=== PATIENT | female | born 1965 | race Caucasian/White ===

== ENCOUNTER 2019-01-23 17:04 | Emergency (ER) | payer OTHER ==
[~2019-01-23] VITALS: Ht 170.2 cm; Wt 93.0 kg
[~2019-01-23 17:04] MED LIST: ACET500 PO; ALBU90OI6 INH; AMOX500 PO; ASPI81CH PO; AZIT250 PO; Amoxicillin500 MG PO; Aspirin EC81 MG PO; BELPTAB PO; BENZ100A PO; CIPR500 PO; CLAR500 PO; CODGUAEL PO; CONEST.3 PO; CONEST.625; CRUTCH3 USE; CYCL10 PO; ESCI10 PO; FAMO10; HYDACE5 PO; HYDCHL25 PO; HYDGUAL120 PO; HYOS.125 SL; Hydrochlorothia25 MG PO; LANS30EC PO; LEVSOD100; LEVSOD100 PO; MEDR10 PO; METOPROLOL; METPRE4DP PO; METR500 PO; NAPR375 PO; NAPR500 PO; Norco 5-325 Ta1 EACH PO; OMEP20ER PO; ONDA8ODT MM; OXYACE5T; OXYACE5T PO; PANT40 PO; PROM12.5S PR; PROM25 PO; RANI150; RANI150 PO; RANITIDINE; RXHYDACE PO; RXPROM25 PO; SIME80CH PO; SIMV10 PO; STATIN; Sudogest60 MG PO; THROID; THYROID; TOPI100 PO; TRAM50 PO; VERA120ERB PO; [UNRECOGNIZED DRUG - OTHER]
[2019-01-23 18:13] LABS: BASOPHILS ABSOLUTE AUTO 0.05 K/mm3 (0.00-0.23); BASOPHILS PERCENT AUTO 1 % (0-2); EOSINOPHILS ABSOLUTE AUTO 0.11 K/mm3 (0.00-0.68); EOSINOPHILS PERCENT AUTO 2 % (0-6); Hematocrit 41.2 % (33.0-51.0); Hemoglobin 14.3 g/dL (11.5-16.0); IMMATURE GRAN ABSOLUTE AUTO 0.03 K/mm3 (0.00-0.10); IMMATURE GRAN PERCENT AUTO 1 % (0-1); LYMPHOCYTES ABSOLUTE AUTO 2.28 K/mm3 (0.84-5.20); LYMPHOCYTES PERCENT AUTO 34 % (21-46); MONOCYTES ABSOLUTE AUTO 0.71 K/mm3 (0.16-1.47); MONOCYTES PERCENT AUTO 11 % (4-13); Mean Corpuscular HGB 31.2 pg (26.0-34.0); Mean Corpuscular HGB Conc 34.7 g/dL (31.5-36.5); Mean Corpuscular Volume 90 fL (80-100); Mean Platelet Volume 9.8 fL (9.1-12.4); NEUTROPHILS ABSOLUTE AUTO 3.45 K/mm3 (1.96-9.15); NEUTROPHILS PERCENT AUTO 52 % (41-73); Platelet Count 259 K/mm3 (150-400); RDW Coefficient Variation 12.5 % (11.7-14.2); RDW Standard Deviation 41.1 fL (35.1-46.3); Red Blood Cell Count 4.59 M/mm3 (3.80-5.20); White Blood Cell Count 6.63 K/mm3 (4.00-11.30)
[2019-01-23 18:33] LABS: Alanine Aminotransfer (ALT/SGP 32 U/L (12-78); Albumin, Blood 3.8 g/dL (3.4-5.0); Alk Phos 70 U/L (50-136); Anion Gap 7 mmol/L (6-16); Aspartate Aminotrans (AST/SGOT 17 U/L (12-37); Bilirubin, Total 0.2 mg/dL (0.1-1.0); Blood Urea Nitrogen 14 mg/dL (8-24); Bun/Creatinine Ratio 17.1 (12.0-20.0); CO2, Blood 25 mmol/L (21-32); Calcium, Blood 9.1 mg/dL (8.5-10.1); Chloride, Blood 109 mmol/L (98-108); Creatinine, Blood 0.82 mg/dL (0.40-1.00); Globulin, Blood 3.7 g/dL (2.2-4.0); Glomerular Filtration Rate >60 (60-); Glucose, Blood 91 mg/dL (70-99); Potassium, Blood 3.3 mmol/L (3.5-5.5); Sodium, Blood 141 mmol/L (136-145); Total Protein, Blood 7.5 g/dL (6.4-8.2)
[2019-01-23] MEDS ORDERED: POTCHL20ER PO (19:33)
== END 2019-01-23 19:55 | disposition home or self-care (01) ==
LOC: ER 17:04
PROVIDERS: Emergency Medicine
DX: G43.909 Migraine, unspecified, not intractable, without status migrainosus (principal); R20.2 Paresthesia of skin; E87.6 Hypokalemia; K21.9 Gastro-esophageal reflux disease without esophagitis; M79.89 Other specified soft tissue disorders; E05.90 Thyrotoxicosis, unspecified without thyrotoxic crisis or storm; R29.810 Facial weakness; Z88.2 Allergy status to sulfonamides; Z88.8 Allergy status to other drugs, medicaments and biological substances; Z79.82 Long term (current) use of aspirin; Z79.899 Other long term (current) drug therapy
CPT/HCPCS: 36415; 70450; 80053; 85025; 96374; 96375; 99284-25; J1200; J1885; J2765

== ENCOUNTER → 2020-04-13 | Outpatient (CLI) | payer OTHER ==
[~2020-04-13] MED LIST changes: +POTCHL20ER PO
== END ==
LOC: LAB EV 17:53 → LAB SHORT 17:53
DX: N39.0 Urinary tract infection, site not specified (principal)
CPT/HCPCS: 87077; 87086; 87186

== ENCOUNTER → 2022-01-03 | Outpatient (CLI) | payer OTHER | END | disposition home or self-care (01) | LOC: LAB SHORT 16:11 → LAB 16:11 | DX: R30.9 Painful micturition, unspecified (principal) | CPT/HCPCS: 87077; 87086; 87186 ==

== ENCOUNTER → 2022-01-17 | Outpatient (CLI) | payer OTHER ==
[2022-01-17 14:31] LABS: Source, Urine Clean Catch
[2022-01-17 17:44] LABS: Appearance, Urine Hazy (Clear); Bilirubin, Urine Neg (Neg); Blood, Urine 2+ (Neg); Color, Urine Yellow (P-Yellow); Glucose Qualitative, Urine Neg (Neg); Ketones, Urine Neg (Neg); Leukocyte Esterase, Urine 3+ (Neg); Nitrite, Urine Neg (Neg); Protein, Urine Neg (Neg); Specific Gravity, Urine 1.015 (1.003-1.022); Urobilinogen, Urine NORM (Normal)
[2022-01-17 18:12] LABS: Bacteria Mod /hpf
[2022-01-17 18:13] LABS: Squamous Epithelial Cells Mod /hpf (Few)
[2022-01-17 18:14] LABS: Other Crystals Many /hpf
[2022-01-18 11:51] LABS: Candida species (DNA Probe) Negative (NEGATIVE); G. vaginalis (DNA Probe) Negative (NEGATIVE); T. vaginalis (DNA Probe) Negative (NEGATIVE)
== END | disposition home or self-care (01) ==
LOC: LAB SHORT 14:24
PROVIDERS: Family Medicine
DX: N76.0 Acute vaginitis (principal); R30.9 Painful micturition, unspecified
CPT/HCPCS: 81001; 87480; 87510; 87660

== ENCOUNTER → 2022-02-13 | Outpatient (CLI) | payer OTHER ==
[2022-02-13 13:30] LABS: Protein, Urine Quantitative 8.7 mg/dL (0.0-11.9)
[2022-02-13 13:45] LABS: Microalbumin, Urine Quant. <5.000 mg/L (0.000-20.000)
== END | disposition home or self-care (01) ==
LOC: LAB SHORT 08:00 → LAB 08:00
PROVIDERS: Internal Medicine Nephrology
DX: N18.2 Chronic kidney disease, stage 2 (mild) (principal); D63.1 Anemia in chronic kidney disease; J20.9 Acute bronchitis, unspecified; N13.30 Unspecified hydronephrosis; R94.5 Abnormal results of liver function studies; R32 Unspecified urinary incontinence; R76.9 Abnormal immunological finding in serum, unspecified; G60.9 Hereditary and idiopathic neuropathy, unspecified
CPT/HCPCS: 81050; 82043; 82570; 84156

== ENCOUNTER → 2022-05-17 | Outpatient (CLI) | payer OTHER | END | disposition home or self-care (01) | LOC: LAB SHORT 11:15 | DX: K21.9 Gastro-esophageal reflux disease without esophagitis (principal) | CPT/HCPCS: 87338 ==

== ENCOUNTER → 2022-05-19 | Outpatient (CLI) | payer OTHER ==
[2022-05-19 19:22] LABS: Adenovirus F 40/41 Not Detected (NOT DETECT); Astrovirus Not Detected (NOT DETECT); Campylobacter Sp Not Detected (NOT DETECT); Cryptosporidium Not Detected (NOT DETECT); Cyclospora Cayetanensis Not Detected (NOT DETECT); E. Coli O157 Not Detected (NOT DETECT); Entamoeba Histolytica Not Detected (NOT DETECT); Enteroaggregative E. coli-EAEC Not Detected (NOT DETECT); Enteropathogenic E. coli-EPEC Not Detected (NOT DETECT); Enterotoxigenic E. coli-ETEC Not Detected (NOT DETECT); Giardia Lamblia Not Detected (NOT DETECT); Norovirus GI/GII Detected (NOT DETECT); Plesiomonas Shigelloides Not Detected (NOT DETECT); Rotavirus A Not Detected (NOT DETECT); Salmonella Sp Not Detected (NOT DETECT); Sapovirus Not Detected (NOT DETECT); Shiga Toxin-prod E. coli-STEC Not Detected (NOT DETECT); Shigella/Enteroin E. coli-EIEC Not Detected (NOT DETECT); Vibrio Cholerae Not Detected (NOT DETECT); Vibrio Sp Not Detected (NOT DETECT); Yersinia Enterocolitica Not Detected (NOT DETECT)
== END | disposition home or self-care (01) ==
LOC: LAB 11:30 → LAB SHORT 11:30
PROVIDERS: Family Medicine
DX: K63.89 Other specified diseases of intestine (principal); R19.7 Diarrhea, unspecified
CPT/HCPCS: 87507

== ENCOUNTER 2022-10-24 08:28 | Day surgery (SDC) | payer OTHER ==
[2022-10-24] VITALS (18 sets, daily range): BP systolic 95–140; BP diastolic 62–95
[~2022-10-24] VITALS: Ht 167.6 cm; Wt 92.7 kg
[~2022-10-24 08:28] MED LIST changes: +CHOLP PO; +HYDACE10B PO; +LEVO T PO; +LOPE2C PO; +MULTI-VITAMIN1 EAC2 PO; +POTA10T PO; -VERA120ERB PO; +VERAPAMIL ER120 M1 PO; +Zocor10 MG PO
--- NOTE | 2022-10-24 09:44 | NUR ---
10/24/22 0944 Constance Mccarthy HISTORY, CHART, MEDICATIONS AND ALLERGIES REVIEWED BEFORE START OF PROCEDURE. PATIENT CONFIRMS NPO STATUS AND AGREES WITH SCHEDULED PROCEDURE. 3-LEAD EKG REVIEWED WITH PHYSICIAN PRIOR TO START OF PROCEDURE. MONITOR INTACT WITH CONTINUOUS PULSE OXIMETRY,CAPNOGRAPHY, 3-LEAD EKG, INTERMITTENT BP. SUPPLEMENTAL O2 TO BE TITRATED THROUGHOUT PROCEDURE TO MAINTAIN O2 SATURATION ABOVE 90%. PATIENT DETERMINED TO BE ASA APPROPRIATE FOR PROPOFOL SEDATION PRIOR TO START OF PROCEDURE BY DR. LINTON/
--- NOTE | 2022-10-24 10:58 | NUR ---
1025 REPORT RECEIVED FROM LUIGI BOWDEN RN. VSS. PT SITTING UP IN BED TOLERATING PO FLUIDS. SISTER AT BEDSIDE. PT DENIES PAIN OR DISCOMFORT.
--- NOTE | 2022-10-24 10:59 | NUR ---
Patient up to Ambulate independently. Gait steady. VSS. Discharge instructions reviewed with patient. Patient verbalizes understanding. Copy given to patient to take home. Patient States Post-Procedure ride home has been arranged. Discharged via wheelchair to private car for ride home. PT BELONGINGS RETURNED TO PT.
== END 2022-10-24 22:49 | disposition home or self-care (01) ==
LOC: ORSCMMR 08:28 → ORD 09:30 → ORSCMMR 22:49
PROVIDERS: Internal Medicine Gastroenterology
PROC: 0DDN8ZX Extraction of Sigmoid Colon, Via Natural or Artificial Opening Endoscopic, Diagnostic (ICD-10-PCS; principal; 2022-10-24 09:30)
PROC: 0DDK8ZX Extraction of Ascending Colon, Via Natural or Artificial Opening Endoscopic, Diagnostic (ICD-10-PCS; principal; 2022-10-24 09:30)
PROC: 0DDL8ZX Extraction of Transverse Colon, Via Natural or Artificial Opening Endoscopic, Diagnostic (ICD-10-PCS; principal; 2022-10-24 09:30)
DX: R19.7 Diarrhea, unspecified (principal); Z86.010 Personal history of colon polyps; Z80.0 Family history of malignant neoplasm of digestive organs; K52.832 Lymphocytic colitis; K64.8 Other hemorrhoids; E03.9 Hypothyroidism, unspecified; E78.00 Pure hypercholesterolemia, unspecified; K21.9 Gastro-esophageal reflux disease without esophagitis; Z79.82 Long term (current) use of aspirin; Z79.899 Other long term (current) drug therapy
CPT/HCPCS: 88305; J2704; J7120

== ENCOUNTER → 2023-01-15 | Outpatient (CLI) | payer OTHER | END | disposition home or self-care (01) | LOC: LAB 11:25 → LAB SHORT 11:25 | DX: R30.0 Dysuria (principal) | CPT/HCPCS: 87077; 87086; 87186 ==

== ENCOUNTER 2023-02-21 08:41 | Day surgery (SDC) | payer OTHER ==
[~2023-02-21] VITALS: Ht 170.2 cm; Wt 93.4 kg
[2023-02-21] VITALS (14 sets, daily range): BP systolic 98–122; BP diastolic 53–80
--- NOTE | 2023-02-21 09:40 | NUR ---
Patient up to Ambulate independently. Gait steady. History, Chart, Medications and Allergies reviewed before start of procedure. Lungs clear T/O to Auscultation. Patient confirms NPO status and agrees with scheduled surgery. Pre-Op teaching done. Pt verbalizes understanding. AT BEDSIDE. CLOTHES SHOES AND PHONE PLACED IN PT BELONGING BED UNDER THE GURN.
--- NOTE | 2023-02-21 14:16 | NUR ---
PATIENT ARRIVED FROM PACU TODAY AT 1400. POD 0 RIGHT TOTAL KNEE PATIENT IS A&OX4. VS ARE WNL AND IS ON RA. PATIENT HAD A SPINAL DURING PROCEDURE AND REPORTS NUMBNESS FROM THE TOP OF KNEE DOWN BUT IS ABLE TO WIGGLE FINGERS AND TOES WHEN ASKED. PEDAL PULSES ARE STRONG AND WARM TO TOUCH. SHE IS TOLERATING SMALL AMOUNTS OF PO INTAKE. HER RIGHT KNEE HAS AN MARIO WRAP THAT IS C/D/I. PATIENT IS LAYING IN BED WITH POLAR PACK ON RIGHT KNEE AND AT BEDSIDE WITH CALL LIGHT IN REACH.
--- NOTE | 2023-02-21 15:07 | NUR ---
SHIFT SUMMARY: POD 0 RIGHT TOTAL KNEE NO SIGNIFICANT CHANGES SINCE ARRIVAL FROM PACU. PATIENT IS A&OX4. VS ARE WNL AND IS ON RA. PATIENTS PAIN IS MANAGED WITH PO OXY. SHE REPORTS HAVING MORE SENSATION TO BLE. SHE IS ABLE TO WIGGLE FINGERS AND TOES. PEDAL PULSES ARE STRONG AND WARM TO TOUCH. SHE IS TOLERATING PO INTAKE. PATIENT HAS YET TO VOID BUT HAS UNTIL 1999 PER PROTOCOL. PATIENT IS LAYING IN BED WITH CALL LIGHT IN REACH AND AT BEDSIDE.
[2023-02-22 00:36] VITALS: BP 125/63
[2023-02-22 03:27] VITALS: BP 125/62
[2023-02-22 04:48] LABS: BASOPHILS ABSOLUTE AUTO 0.03 K/mm3 (0.00-0.23); BASOPHILS PERCENT AUTO 0 % (0-2); EOSINOPHILS PERCENT AUTO 0 % (0-6); Hematocrit 36.8 % (33.0-51.0); Hemoglobin 12.5 g/dL (11.5-16.0); IMMATURE GRAN ABSOLUTE AUTO 0.06 K/mm3 (0.00-0.10); IMMATURE GRAN PERCENT AUTO 0 % (0-1); LYMPHOCYTES ABSOLUTE AUTO 1.38 K/mm3 (0.84-5.20); LYMPHOCYTES PERCENT AUTO 9 % (21-46); MONOCYTES ABSOLUTE AUTO 0.93 K/mm3 (0.16-1.47); MONOCYTES PERCENT AUTO 6 % (4-13); Mean Corpuscular HGB 30.3 pg (26.0-34.0); Mean Corpuscular Volume 89 fL (80-100); Mean Platelet Volume 9.8 fL (9.1-12.4); NEUTROPHILS ABSOLUTE AUTO 13.26 K/mm3 (1.96-9.15); NEUTROPHILS PERCENT AUTO 85 % (41-73); Platelet Count 262 K/mm3 (150-400); RDW Coefficient Variation 12.6 % (11.7-14.2); RDW Standard Deviation 41.1 fL (35.1-46.3); Red Blood Cell Count 4.13 M/mm3 (3.80-5.20); White Blood Cell Count 15.66 K/mm3 (4.00-11.30)
[2023-02-22 05:27] LABS: Bun/Creatinine Ratio 16.7 (12.0-20.0); Calcium, Blood 8.6 mg/dL (8.5-10.1); Creatinine, Blood 0.72 mg/dL (0.40-1.00); Potassium, Blood 4.1 mmol/L (3.5-5.5)
--- NOTE | 2023-02-22 05:37 | NUR ---
SHIFT SUMMARY NO ACUTE CHANGES TO REPORT OVERNIGHT, PT POD 0 RIGHT TOTAL KNEE. PAIN HAS BEEN MANAGED PER EMAR. PT HAS BEEN UP AND AMBULATING, SHE IS VOIDING AND TOLERATING PO INTAKE. VITALS STABLE. DRESSING IS C/D/I. PLAN IS FOR DC TODAY.
[2023-02-22 07:03] VITALS: BP 124/69
--- NOTE | 2023-02-22 11:10 | NUR ---
DISCHARGE SUMMARY PT A&OX4, VSS/RA, LARRY PO, VOIDING, AMB INDEPENDENTLY, PAIN MANAGED, IV DC'D. DC INS PROVIDED. PT REP UNDERSTANDING THOSE INSTRUCTIONS. LEFT FLOOR VIA WC WITH SODDER TO GO HOME WITH FAMILY, WITH ALL PERSONAL POSSESSIONS INCLUDING DC PACKET AND AQUACEL DRESSINGS.
== END 2023-02-22 09:46 | disposition home or self-care (01) ==
LOC: ORSCMMR 08:41 → ORD 10:45 → SURS 13:40 → ORD 14:00 → ORSCMMR 02-22 09:46
PROVIDERS: Orthopaedic Surgery
PROC: 0SRC0J9 Replacement of Right Knee Joint with Synthetic Substitute, Cemented, Open Approach (ICD-10-PCS; principal; 2023-02-21 10:45)
DX: M17.0 Bilateral primary osteoarthritis of knee (principal); E78.5 Hyperlipidemia, unspecified; K21.9 Gastro-esophageal reflux disease without esophagitis; Z87.891 Personal history of nicotine dependence; E03.9 Hypothyroidism, unspecified; Z79.899 Other long term (current) drug therapy
CPT/HCPCS: 36415; 73560-RT; 80048; 83735; 85025; 97110; 97116; 97161; 97530; A9270; C1713; C1776; J0171; J0690; J0735; J1100; J1885; J2250; J2371; J2405; J2704; J2795; J3010; J7120

== ENCOUNTER → 2023-03-02 | Outpatient (CLI) | payer OTHER | END | disposition home or self-care (01) | LOC: LAB 14:07 → LAB SHORT 14:07 | DX: N39.0 Urinary tract infection, site not specified (principal) | CPT/HCPCS: 87077; 87086; 87186 ==

== ENCOUNTER 2024-02-24 00:55 | Emergency (ER) | payer OTHER ==
[~2024-02-24] VITALS: Ht 162.6 cm; Wt 95.2 kg
[2024-02-24 01:25] LABS: BASOPHILS ABSOLUTE AUTO 0.07 K/mm3 (0.00-0.23); BASOPHILS PERCENT AUTO 1 % (0-2); EOSINOPHILS ABSOLUTE AUTO 0.16 K/mm3 (0.00-0.68); EOSINOPHILS PERCENT AUTO 2 % (0-6); Hematocrit 42.2 % (33.0-51.0); Hemoglobin 14.3 g/dL (11.5-16.0); IMMATURE GRAN ABSOLUTE AUTO 0.04 K/mm3 (0.00-0.10); IMMATURE GRAN PERCENT AUTO 1 % (0-1); LYMPHOCYTES ABSOLUTE AUTO 3.06 K/mm3 (0.84-5.20); LYMPHOCYTES PERCENT AUTO 37 % (21-46); MONOCYTES ABSOLUTE AUTO 0.82 K/mm3 (0.16-1.47); MONOCYTES PERCENT AUTO 10 % (4-13); Mean Corpuscular HGB 30.9 pg (26.0-34.0); Mean Corpuscular HGB Conc 33.9 g/dL (31.5-36.5); Mean Corpuscular Volume 91 fL (80-100); Mean Platelet Volume 9.6 fL (9.1-12.4); NEUTROPHILS ABSOLUTE AUTO 4.05 K/mm3 (1.96-9.15); NEUTROPHILS PERCENT AUTO 49 % (41-73); Platelet Count 303 K/mm3 (150-400); RDW Standard Deviation 40.1 fL (35.1-46.3); Red Blood Cell Count 4.63 M/mm3 (3.80-5.20)
[2024-02-24] MEDS ORDERED: DiphenhydrAMINE HCl 50 MG/ML 1ML Vial IV ONE (01:40)
[2024-02-24] MEDS ORDERED: Metoclopramide HCl 5MG / ML 2ML Vial IV ONE (01:40)
[2024-02-24] MEDS ORDERED: Ketorolac Tromethamine 30mg Vial IV ONE (01:40)
[2024-02-24 01:43] LABS: Albumin, Blood 3.8 g/dL (3.4-5.0); Bilirubin, Total 0.2 mg/dL (0.1-1.0); Bun/Creatinine Ratio 15.5 (12.0-20.0); Calcium, Blood 9.1 mg/dL (8.5-10.1); Creatinine, Blood 0.78 mg/dL (0.40-1.00); Globulin, Blood 3.8 g/dL (2.2-4.0); Potassium, Blood 3.6 mmol/L (3.5-5.5); Total Protein, Blood 7.6 g/dL (6.4-8.2)
[2024-02-24 02:53] LABS: Magnesium, Blood 1.9 mg/dL (1.6-2.4); Thyroid Stimulating Hormone 1.42 uIU/mL (0.360-4.800)
[2024-02-24] MEDS ORDERED: HYDROcodone 10-APAP 325 TAB PO ONE (04:45)
[2024-02-24 05:00] VITALS: BP 128/70
== END 2024-02-24 05:13 | disposition home or self-care (01) ==
LOC: ER 00:55
PROVIDERS: Student in an Organized Health Care Education/Training Program
DX: G43.909 Migraine, unspecified, not intractable, without status migrainosus (principal); R56.9 Unspecified convulsions; E03.9 Hypothyroidism, unspecified; K21.9 Gastro-esophageal reflux disease without esophagitis; Z88.2 Allergy status to sulfonamides; Z88.0 Allergy status to penicillin; Z88.8 Allergy status to other drugs, medicaments and biological substances; Z79.899 Other long term (current) drug therapy; Z79.890 Hormone replacement therapy; Z79.82 Long term (current) use of aspirin
CPT/HCPCS: 80053; 83605; 83735; 84443; 85025; 93005; 93010; 96374; 96375; 99285-25; A9270; J1200; J1885; J2765

== ENCOUNTER → 2024-09-17 | Outpatient (CLI) | payer OTHER ==
[2024-09-19 21:40] LABS: CALPROTECTIN,FECAL 54 ug/g (<=49)
== END ==
LOC: LAB SHORT 09:00 → LAB 09:00
PROVIDERS: Internal Medicine Gastroenterology
DX: R19.7 Diarrhea, unspecified (principal)
CPT/HCPCS: 83993

== ENCOUNTER 2025-01-20 07:30 | Day surgery (SDC) | payer OTHER ==
[~2025-01-20] VITALS: Ht 170.2 cm; Wt 91.7 kg
[2025-01-20] MEDS ORDERED: Ondansetron HCl 2 MG / ML 2ML Vial ONE (09:29)
--- NOTE | 2025-01-20 10:18 | NUR ---
01/20/25 1018 ALEX DOZIER UNABLE TO REACH CECUM
[2025-01-20 10:24] VITALS: BP 122/80
--- NOTE | 2025-01-20 10:27 | NUR ---
01/20/25 1027 Frances Bernardo PT WITH 4/10 ABDOMINAL CRAMPING UPON TRANSFER FROM OR. PT SITTING UP AND DRINKING TEA. WILL MONITOR FOR 30MIN PER MD GUSMAN''S REQUEST.
== END 2025-01-20 10:50 | disposition home or self-care (01) ==
LOC: ORSCSDS 07:30
PROVIDERS: Internal Medicine Gastroenterology
PROC: 0DBE8ZX Excision of Large Intestine, Via Natural or Artificial Opening Endoscopic, Diagnostic (ICD-10-PCS; principal; 2025-01-20 09:00)
PROC: 0DBL8ZX Excision of Transverse Colon, Via Natural or Artificial Opening Endoscopic, Diagnostic (ICD-10-PCS; principal; 2025-01-20 09:00)
DX: R19.7 Diarrhea, unspecified (principal); K52.832 Lymphocytic colitis; Z80.0 Family history of malignant neoplasm of digestive organs; Z87.891 Personal history of nicotine dependence; Z79.899 Other long term (current) drug therapy
CPT/HCPCS: 88305; 88342; J2405; J2704; J7120